=== PATIENT | female | born 1995 | race Caucasian/White ===

== ENCOUNTER 2020-08-29 11:09 | Emergency (ER) | payer OTHER ==
[2020-11-13] MEDS ORDERED: LAMOTRIGINE200 MG PO (15:44)
[2020-11-13] MEDS ORDERED: LAMOTRIGINE25 MG PO (15:44)
[2020-11-13] MEDS ORDERED: HYDROXYZINE HCL50 MG PO (15:44)
[2020-11-18] MEDS ORDERED: ZOLOFT100 MG PO (09:53)
[2020-11-18] MEDS ORDERED: antibiotic (09:54)
[2020-11-18] MEDS ORDERED: ACETAMINOPHEN500 M1 PO (12:03)
[2020-11-18] MEDS ORDERED: COLACE100 MG PO (12:03)
[2020-11-18] MEDS ORDERED: MOTRIN600 MG PO (12:03)
[2020-11-18] MEDS ORDERED: OXY-IR 5MG5 MG PO (12:03)
[2020-12-17] MEDS ORDERED: MIRENA1 EACH VG ×2 (14:56→14:57)
== END 2020-08-29 12:18 | disposition home or self-care (01) ==
LOC: FER 11:09
DX: S20.214A Contusion of middle front wall of thorax, initial encounter (principal); M25.561 Pain in right knee; V49.40XA Driver injured in collision with unspecified motor vehicles in traffic accident, initial encounter; Y92.410 Unspecified street and highway as the place of occurrence of the external cause
CPT/HCPCS: 71046; 73560

== ENCOUNTER 2020-11-11 18:24 | Emergency (ER) | payer OTHER ==
[2020-11-13] MEDS ORDERED: LAMOTRIGINE200 MG PO (15:44)
[2020-11-13] MEDS ORDERED: LAMOTRIGINE25 MG PO (15:44)
[2020-11-13] MEDS ORDERED: HYDROXYZINE HCL50 MG PO (15:44)
[2020-11-18] MEDS ORDERED: ZOLOFT100 MG PO (09:53)
[2020-11-18] MEDS ORDERED: antibiotic (09:54)
[2020-11-18] MEDS ORDERED: MOTRIN600 MG PO (12:03)
[2020-11-18] MEDS ORDERED: ACETAMINOPHEN500 M1 PO (12:03)
[2020-11-18] MEDS ORDERED: COLACE100 MG PO (12:03)
[2020-11-18] MEDS ORDERED: OXY-IR 5MG5 MG PO (12:03)
[2020-12-17] MEDS ORDERED: MIRENA1 EACH VG ×2 (14:56→14:57)
== END 2020-11-11 19:30 | disposition left against medical advice (07) ==
LOC: FER 18:24
DX: R10.9 Unspecified abdominal pain (principal); Z90.49 Acquired absence of other specified parts of digestive tract; Z53.8 Procedure and treatment not carried out for other reasons

== ENCOUNTER → 2020-11-18 | Day surgery (SDC) | payer OTHER ==
[~2020-11-18] MED LIST: ACETAMINOPHEN500 M1 PO; COLACE100 MG PO; HYDROXYZINE HCL50 MG PO; LAMOTRIGINE200 MG PO; LAMOTRIGINE25 MG PO; MIRENA1 EACH VG; MOTRIN600 MG PO; OXY-IR 5MG5 MG PO; ZOFRAN4 M1 PO; ZOLOFT100 MG PO; antibiotic
[2020-11-18 09:55] LABS: HCG (URINE) SCREEN NEGATIVE (NEGATIVE)
== END | disposition home or self-care (01) ==
LOC: FAS 09:21
PROVIDERS: Student in an Organized Health Care Education/Training Program
DX: K81.1 Chronic cholecystitis (principal); K82.8 Other specified diseases of gallbladder; K52.89 Other specified noninfective gastroenteritis and colitis; F41.9 Anxiety disorder, unspecified; Z83.3 Family history of diabetes mellitus; Z20.822 Contact with and (suspected) exposure to COVID-19; Z79.899 Other long term (current) drug therapy; Z82.49 Family history of ischemic heart disease and other diseases of the circulatory system
CPT/HCPCS: 84703; J1100; J1170; J1644; J1885; J2250; J2405; J2704; J2710; J3010; J7120; U0002

== ENCOUNTER 2020-12-05 16:26 | Emergency (ER) | payer OTHER ==
[~2020-12-05 16:26] MED LIST changes: -MIRENA1 EACH VG; -ZOFRAN4 M1 PO
[2020-12-05 16:51] LABS: BASOPHIL 0.3 % (0-2); EOSINOPHIL 0.5 % (0-5); LYMPHOCYTE 8.5 % (15-48); MCH 32.1 pg (25.0-31.0); MCHC 34.9 g/dL (32.0-36.0); MCV 91.9 fL (78.0-100.0); MONOCYTE 5.8 % (0-12); MPV 10.6 fL (6.0-9.5); NEUTROPHIL 84.6 % (41-80); NRBC 0; PLT 377 K/uL (150-400); RBC 4.68 M/uL (4.20-5.40); WBC 17.2 K/uL (4.0-10.5)
[2020-12-05 17:10] LABS: ALBUMIN 3.9 g/dL (3.4-5.0); BILIRUBIN - TOTAL 0.4 mg/dL (0.2-1.0); CREATININE 0.57 mg/dL (0.51-0.95); GLOBULIN (CALCULATION) 4.3 g/dL; POTASSIUM 3.8 mmol/L (3.5-5.1); TOTAL PROTEIN 8.2 g/dL (6.4-8.2)
[2020-12-05 18:25] LABS: BILIRUBIN NEGATIVE (NEGATIVE); BLOOD NEGATIVE Ery/uL (NEGATIVE); CLARITY CLEAR (CLEAR); COLOR YELLOW (YELLOW); GLUCOSE (U) NORMAL (NORMAL); LEUKOCYTES NEGATIVE Leu/uL (NEGATIVE); NITRITE NEGATIVE (NEGATIVE); PROTEIN NEGATIVE (NEGATIVE); UROBILINOGEN 0.2 mg/dL (0.2-1.0)
[2020-12-05] MEDS ORDERED: ZOFRAN4 M1 PO (20:36)
[2020-12-17] MEDS ORDERED: MIRENA1 EACH VG ×2 (14:56→14:57)
== END 2020-12-05 20:46 | disposition home or self-care (01) ==
LOC: FER 16:26
PROVIDERS: Emergency Medicine
DX: R11.2 Nausea with vomiting, unspecified (principal); R19.7 Diarrhea, unspecified; R10.9 Unspecified abdominal pain; D72.829 Elevated white blood cell count, unspecified
CPT/HCPCS: 36415; 80053; 81003; 82150; 83690; 85025; J2405; J7030; Q9967

== ENCOUNTER → 2021-09-26 | Day surgery (SDC) | payer OTHER ==
[~2021-09-26] VITALS: Ht 155 cm; Wt 71.7 kg
[~2021-09-26] MED LIST changes: +MIRENA1 EACH VG; +ZOFRAN4 M1 PO
[2021-09-26 10:25] LABS: HCG (URINE) SCREEN NEGATIVE (NEGATIVE)
== END | disposition home or self-care (01) ==
LOC: FAS 10:11
PROVIDERS: Anesthesiology
DX: K29.51 Unspecified chronic gastritis with bleeding (principal); K52.9 Noninfective gastroenteritis and colitis, unspecified; K64.8 Other hemorrhoids; Z78.9 Other specified health status; Z90.49 Acquired absence of other specified parts of digestive tract
CPT/HCPCS: 84703; J2704; J7120

== ENCOUNTER 2022-01-01 02:22 | Emergency (ER) | payer OTHER ==
[2022-01-01] MEDS ORDERED: NORCO 5-325 TA1 EACH PO (03:03)
[2022-01-01] MEDS ORDERED: NAPROXEN500 MG PO (03:03)
== END 2022-01-01 03:29 | disposition home or self-care (01) ==
LOC: FER 02:22
DX: S63.502A Unspecified sprain of left wrist, initial encounter (principal); Z28.310 Unvaccinated for COVID-19; W19.XXXA Unspecified fall, initial encounter
CPT/HCPCS: 73090; 73110; J1885

== ENCOUNTER 2022-01-19 00:26 | Emergency (ER) | payer OTHER ==
[~2022-01-19 00:26] MED LIST changes: +NAPROXEN500 MG PO; +NORCO 5-325 TA1 EACH PO
== END 2022-01-19 01:59 | disposition home or self-care (01) ==
LOC: FER 00:26
DX: S90.32XA Contusion of left foot, initial encounter (principal); W20.8XXA Other cause of strike by thrown, projected or falling object, initial encounter; Y92.89 Other specified places as the place of occurrence of the external cause; Y99.0 Civilian activity done for income or pay
CPT/HCPCS: 73630